=== PATIENT | female | born 1965 | race Caucasian/White ===

== ENCOUNTER → 2020-05-05 12:22 | Outpatient (BNVA) | payer MEDICARE, MEDICAID, SELFPAY | PROVIDERS: Referring Provider Nurse Practitioner Family; Visit Provider Psychiatry & Neurology Neurology | DX: R55 Syncope and collapse (principal); E11.9 Type 2 diabetes mellitus without complications; J44.9 Chronic obstructive pulmonary disease, unspecified; F17.210 Nicotine dependence, cigarettes, uncomplicated | CPT/HCPCS: 99204 ==

== ENCOUNTER 2020-05-23 01:22 | Outpatient (CLI) | payer MEDICARE, MEDICAID, SELFPAY ==
--- NOTE | 2020-05-27 19:34 | PDOC.EEG_ITS ---
Neurology EEG EEG: [facility] Department of Neurology LONG-TERM AMBULATORY EEG REPORT Date of Recordin05/23/20 at 13:26:55 to 05/24/20 at 15:14:29 (however the device was disconnected at 05:14:16) Interpreting Physician: Dr. Jenna Quintero PCP/Referring Provider: Raoul Mcknight NP Reason for study: Ms. Garcia is a 54 year-old woman with cognitive delay with recurrent events of loss of consiousness of unclear etiology. Current Medications: Home Medications Medication Instructions Recorded Confirmed Type albuterol sulfate 90 mcg/actuation 2 puff INHALATION DAILY g 04/14/20 05/05/20 History aerosol inhaler cetirizine 10 mg tablet 10 mg PO DAILY 04/14/20 05/05/20 History epinephrine 0.3 mg/0.3 mL 0.3 mg IM Q5-15M PRN 04/14/20 05/05/20 History injection, auto-injector fluoxetine 20 mg capsule 20 mg PO DAILY 04/14/20 05/05/20 History fluticasone propionate 115 2 puff INHALATION BID 04/14/20 05/05/20 History mcg-salmeterol 21 mcg/actuation HFA inhaler fluticasone propionate 50 1 spray INTRANASAL BID 04/14/20 05/05/20 History mcg/actuation nasal spray,suspension gabapentin 600 mg tablet 600 mg PO BID 04/14/20 05/05/20 History levothyroxine 150 mcg tablet 150 mcg PO DAILY 04/14/20 05/05/20 History meloxicam 15 mg tablet 15 mg PO DAILY 04/14/20 05/05/20 History niacin 500 mg tablet 500 mg PO QHS 04/14/20 05/05/20 History ofloxacin 0.3 % ear drops in a 10 drp OTIC (EAR) DAILY 04/14/20 05/05/20 History dropperette ranitidine HCl 150 mg tablet mg PO BID tab 04/14/20 05/05/20 History rosuvastatin 40 mg tablet 40 mg PO DAILY 04/14/20 05/05/20 History trazodone 50 mg tablet 50 mg PO QHS PRN 04/14/20 05/05/20 History METHODS: An 18-channel digitized electroencephalogram was recorded in the ambulatory setting with video. The 10/20 international system of electrode placement was used and bipolar and referential electrode montages were recorded. In addition to EEG the patient was monitored for EKG and by video. Activation procedures of photic stimulation and hyperventilation were performed if applicable. The duration of the recording was 25.5 hours, however, the device was disconnected at 15.5 hours. DESCRIPTION OF EEG: Waking background activity: During maximal wakefulness a 10-Hz posterior background rhythm was present which was well-modulated, symmetrical, reactive to eye opening, and of moderate voltage. Faster frequencies were present in the bilateral anterior head regions. There was a normal anterior-posterior voltage gradient. Drowsy and sleeping background activity: During drowsiness, there was attenuation of the posterior dominant background rhythm and vertex waves. Normal stage II and III sleep was present with symmetrical sleep spindles, K- complexes, and vertex waves with slowing of the background rhythm to delta/theta frequencies. REM sleep manifested by rapid lateral eye movements and faster ba ckground rhythms was recorded. Arousal was unremarkable. Interictal abnormalities: none. Ictal findings: No events recorded. Activating Procedures: Photic stimulation was performed which produced a symmetrical posterior driving response at various flash frequencies. Hyperventilation was not performed. EKG: EKG revealed normal sinus rhythm. INTERPRETATION: This long-term EEG is normal during the awake and sleep states as well as during the activation procedure. PRIOR EEG: none CLINICAL CORRELATION: No focal regions of cerebral dysfunction or epileptiform activity was present. Epilepsy remains a clinical diagnosis and a normal EEG does not rule out epilepsy. Clinical correlation is advised. Jenna Quintero MD
== END 2020-05-23 01:42 ==
PROVIDERS: PCP Nurse Practitioner Family; Visit Provider Psychiatry & Neurology Neurology
DX: R55 Syncope and collapse (principal); F88 Other disorders of psychological development; R68.89 Other general symptoms and signs
CPT/HCPCS: 95714; 95720